=== PATIENT | male | born 1950 | race Caucasian/White ===

== ENCOUNTER 2017-09-11 05:45 | Day surgery (SDC) | END 2017-09-11 10:35 | disposition home or self-care (01) | DX: Z45.02 Encounter for adjustment and management of automatic implantable cardiac defibrillator (principal); I12.9 Hypertensive chronic kidney disease with stage 1 through stage 4 chronic kidney disease, or unspecified chronic kidney disease; N18.3 Chronic kidney disease, stage 3 (moderate); I42.2 Other hypertrophic cardiomyopathy; D69.6 Thrombocytopenia, unspecified; E78.5 Hyperlipidemia, unspecified; E11.9 Type 2 diabetes mellitus without complications; R06.00 Dyspnea, unspecified; R53.83 Other fatigue; Z94.4 Liver transplant status; Z82.49 Family history of ischemic heart disease and other diseases of the circulatory system; Z79.4 Long term (current) use of insulin; Z86.74 Personal history of sudden cardiac arrest | CPT/HCPCS: 00530; 33263; 80048; 82948; 85025; 85610; 85730; 86850; 86900; 86901; 93005; C1721; J0690; J2370; J3010; J3370 ==